=== PATIENT | male | born 1990 | race African-American/Black ===

== ENCOUNTER 2016-11-14 10:13 | Emergency (ER) | payer SELFPAY ==
[~2016-11-14] VITALS: Ht 180.3 cm; Wt 63.5 kg
[2016-11-14 10:24] VITALS: BP 109/71
--- NOTE | 2016-11-14 10:27 | NUR ---
Pt taken to bed 7.
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
--- NOTE | 2016-11-14 11:11 | NUR ---
Patient being evaluated by physician at bedside.
[2016-11-14] MEDS ORDERED: KETOROLAC 60 MG/2 ML VIAL IM ONE (11:15)
[2016-11-14 12:10] VITALS: BP 108/59
--- NOTE | 2016-11-14 12:10 | NUR ---
Chart checked and completed. The patient's care was reviewed and supervised by Dustin Conti RN.
--- NOTE | 2016-11-14 12:10 | NUR ---
Patient discharged with v/s stable. Written and verbal after care instructions given and explained. Patient alert, oriented and verbalized understanding of instructions. Ambulatory with steady gait. All questions addressed prior to discharge. ID band removed. Patient advised to follow up with PMD. Rx of NORCO,MOTRIN given. Patient educated on indication of medication including possible reaction and side effects. Opportunity to ask questions provided and answered.
== END 2016-11-14 12:10 | disposition home or self-care (01) ==
LOC: MED 10:13
DX: S13.4XXA Sprain of ligaments of cervical spine, initial encounter (principal); M54.5 Low back pain; V89.2XXA Person injured in unspecified motor-vehicle accident, traffic, initial encounter; Y93.89 Activity, other specified; Y92.89 Other specified places as the place of occurrence of the external cause; Y99.8 Other external cause status
CPT/HCPCS: 96372; 99283; J1885

== ENCOUNTER 2016-11-22 12:21 | Emergency (ER) | payer SELFPAY ==
[~2016-11-22] VITALS: Ht 180.3 cm; Wt 63.5 kg
[2016-11-22 12:30] VITALS: BP 115/65
--- NOTE | 2016-11-22 13:26 | NUR ---
PATIENT AMBULATED TO BED 6 AT THIS TIME,
--- NOTE | 2016-11-22 13:35 | NUR ---
Patient being evaluated by physician at bedside.
[2016-11-22] MEDS ORDERED: CARISOPRODOL 350 MG TAB PO ONE (13:40)
[2016-11-22] MEDS ORDERED: IBUPROFEN 600 MG TAB PO ONE (13:40)
--- NOTE | 2016-11-22 13:45 | NUR ---
pt taken to xray via w/c by tech.
--- NOTE | 2016-11-22 14:16 | NUR ---
Patient discharged with v/s stable. Written and verbal after care instructions given and explained. Patient alert, oriented and verbalized understanding of instructions. Ambulatory with steady gait with girlfriend. All questions addressed prior to discharge. ID band removed. Patient advised to follow up with PMD. Rx of soma and motrin 600mg/tab given. Patient educated on indication of medication including possible reaction and side effects. Opportunity to ask questions provided and answered.
[2016-11-22 14:17] VITALS: BP 113/66
== END 2016-11-22 14:16 | disposition home or self-care (01) ==
LOC: MED 12:21
DX: S80.02XA Contusion of left knee, initial encounter (principal); M54.6 Pain in thoracic spine; V89.2XXA Person injured in unspecified motor-vehicle accident, traffic, initial encounter; Y93.89 Activity, other specified; Y92.89 Other specified places as the place of occurrence of the external cause; Y99.8 Other external cause status
CPT/HCPCS: 71010; 72072; 99284

== ENCOUNTER 2017-08-12 00:15 | Emergency (ER) | payer MEDICAID ==
[~2017-08-12] VITALS: Ht 182.9 cm; Wt 66.2 kg
[2017-08-12 00:33] VITALS: BP 111/66
--- NOTE | 2017-08-12 00:35 | NUR ---
PATIENT AMBULATED TO ER BED 1.
--- NOTE | 2017-08-12 00:37 | NUR ---
PATIENT IS A 27 Y/O MALE WHO PRESENTS TO THE ED C/O RASH. PT STATES, "I HAVE HAD THIS RASH ON MY STOMACH FOR ABOUT 4 DAYS." PT REPORTS 4/10 IRRITATING PAIN THAT DOES NOT RADIATE. NOTED LOCALIZED RASH ON RUQ ABD AND RASH ON BACK. PT DENIES CP, SOB, N/V/D. PT AAOX4, RR EVEN/UNLABORED. PT REPOSITIONED FOR COMFORT, BED IN LOWEST POSITION. ER MD DR. SIEGEL NOTIFIED. WILL CONTINUE TO MONITOR.
[2017-08-12] MEDS ORDERED: NEOMYCIN/POLYMYXIN/BACITRACIN 0.9 GM/1 PKT TP ONE ×2 (01:05→01:15)
[2017-08-12 01:20] VITALS: BP 119/72
--- NOTE | 2017-08-12 01:20 | NUR ---
Patient discharged with v/s stable. Written and verbal after care instructions given and explained. Patient alert, oriented and verbalized understanding of instructions. Ambulatory with steady gait. All questions addressed prior to discharge. ID band removed. Patient advised to follow up with PMD. Rx of NEOSPORIN AND HYDROCORTISONE given. Patient educated on indication of medication including possible reaction and side effects. Opportunity to ask questions provided and answered.
== END 2017-08-12 01:20 | disposition home or self-care (01) ==
LOC: MED 00:15
DX: R21 Rash and other nonspecific skin eruption (principal); F17.210 Nicotine dependence, cigarettes, uncomplicated; F12.90 Cannabis use, unspecified, uncomplicated
CPT/HCPCS: 99282

== ENCOUNTER 2017-08-14 00:30 | Emergency (ER) | payer MEDICAID ==
[~2017-08-14] VITALS: Ht 180.3 cm; Wt 61.0 kg
[2017-08-14 00:41] VITALS: BP 102/60
--- NOTE | 2017-08-14 00:43 | NUR ---
PT AMB TO ER O/F [id number]
--- NOTE | 2017-08-14 00:45 | NUR ---
PATIENT IS A 27 Y/O MALE WHO PRESENTS TO THE ED C/O RASH ON BILATERAL LEGS. PT STATES, "MY RASH IN NOW ON MY LEGS." PT REPORTS 6/10 BURNING PAIN THAT DOES NOT RADIATE. NOTED RASH TO BILATERAL LEGS, NO OPEN BLEEDING OR REDNESS. PT DENIES CP, SOB, N/V/D. PT AAOX4, RR EVEN/UNLABORED. PT REPOSITIONED FOR COMFORT, BLANKET OFFERED. ER MD DR. MORENO NOTIFIED. WILL CONTINUE TO MONITOR.
[2017-08-14] MEDS ORDERED: predniSONE 20 MG TAB PO ONE (01:00)
[2017-08-14] MEDS ORDERED: diphenhydrAMINE 50 MG CAP PO ONE (01:00)
[2017-08-14 01:38] VITALS: BP 109/65
--- NOTE | 2017-08-14 01:38 | NUR ---
Patient discharged with v/s stable. Written and verbal after care instructions given and explained. Patient alert, oriented and verbalized understanding of instructions. Ambulatory with steady gait. All questions addressed prior to discharge. ID band removed. Patient advised to follow up with PMD. Rx of PREDNISONE AND BENADRYL ALLERGY given. Patient educated on indication of medication including possible reaction and side effects. Opportunity to ask questions provided and answered.
== END 2017-08-14 01:38 | disposition home or self-care (01) ==
LOC: MED 00:30
DX: R21 Rash and other nonspecific skin eruption (principal)
CPT/HCPCS: 99283; J7512; Q0163